=== PATIENT | male | born 1965 | race Caucasian/White ===

== ENCOUNTER → 2018-06-09 17:09 | Outpatient (CLI) | payer OTHER, SELFPAY ==
--- NOTE | 2018-06-09 17:11 | DI.RAD.S_ITS ---
PROCEDURE: XR CHEST 2V INDICATIONS: Cough. TECHNIQUE: 2 views of the chest were acquired. COMPARISON: [facility], , CHEST 2 VIEW, 07/01/2011, 17:05. FINDINGS: Surgical changes and devices: Cervical spinal fusion hardware noted. Lungs and pleura: No pleural effusions or pneumothorax. Lungs are clear. Mediastinum: Mediastinal contours are normal. Heart size is normal. Bones and chest wall: Mild degenerative changes of the bilateral acromioclavicular joints and thoracic spine noted. IMPRESSION: No acute cardiopulmonary disease. Dictated by: Humphrey Rios M.D. on 06/09/2018 at 17:23 Approved by: Humphrey Rios M.D. on 06/09/2018 at 17:27
== END ==
PROVIDERS: PCP Family Medicine; Visit Provider Physician Assistant
DX: R05 Cough (principal)
CPT/HCPCS: 71046

== ENCOUNTER → 2018-12-31 14:20 | Outpatient (CLI) | payer OTHER, SELFPAY ==
--- NOTE | 2018-12-31 14:21 | DI.CT.S_ITS ---
PROCEDURE: CT SINUS SCREEN WO CON INDICATIONS: possible mastoiditis, sinusitis TECHNIQUE: Noncontrast 3.0 mm axial images acquired from the frontal sinuses to the mid-sella, with coronal and sagittal reformats. For radiation dose reduction, the following was used: automated exposure control, adjustment of mA and/or kV according to patient size. COMPARISON: [facility], MR, BRAIN WITHOUT CONTRAST, 02/18/2017, 17:45. FINDINGS: Image quality: Excellent. Maxillary Sinuses: No bony remodeling or destruction. Sinuses are clear. Ethmoid Air Cells: No bony remodeling or destruction. Sinuses are clear. Sphenoid Sinuses: No bony remodeling or destruction. Sinuses are clear. Frontal Sinuses: No bony remodeling or destruction. Sinuses are clear. Ostiomeatal Complexes: Ostiomeatal complexes are patent, yet they are constitutionally narrowed with infraorbital air cells. Miscellaneous: Visualized intra-orbital contents are normal. No krystin bullosa or paradoxical turbinate curvature. There is mild leftward nasal septal deviation. IMPRESSION: No significant active paranasal sinus disease is seen. No abnormal fluid can be seen within the mastoid air cells. Mild leftward nasal septal deviation Patent ostiomeatal complexes, which are narrowed by infraorbital air cells. Dictated by: Osmin Israel M.D. on 12/31/2018 at 14:14 Approved by: Osmin Israel M.D. on 12/31/2018 at 14:15
== END ==
PROVIDERS: Family Provider Family Medicine; PCP Family Medicine; Visit Provider Family Medicine
DX: H70.90 Unspecified mastoiditis, unspecified ear (principal); J32.9 Chronic sinusitis, unspecified; J34.2 Deviated nasal septum; H92.09 Otalgia, unspecified ear
CPT/HCPCS: 70486

== ENCOUNTER → 2019-05-26 09:38 | Outpatient (CLI) | payer OTHER, SELFPAY ==
[2019-05-26 10:36] LABS: Add Manual Diff / Slide Review NO; Basophils Absolute Auto 100 /uL (0-100); Eosinophils Absolute Auto 100 /uL (0-450); Eosinophils Percent Auto 2.9 % (2-4); Hematocrit 46.1 % (41-53); Lymphocytes Absolute Auto 1700 /uL (1100-4500); Mean Corpuscular HGB Conc 34.7 % (30-36); Mean Corpuscular Hemoglobin 31.7 PG (26-34); Mean Corpuscular Volume 91.3 fL (80-100); Monocytes Absolute Auto 600 /uL (0-900); Monocytes Percent Auto 11.3 % (3-14); Neutrophils Absolute Auto 2500 /uL (1500-7000); Neutrophils Percent Auto 49.8 % (50-75); Platelet Count 268 X10^3/uL (150-400); Red Blood Cell Count 5.04 X10^6/uL (4.5-5.9); Red Cell Distribution Width 13.6 % (11.6-14.8)
[2019-05-26 10:48] LABS: Alanine Aminotransferase 49 IU/L (<50); Albumin 4.8 g/dL (3.5-5.0); Albumin Globulin Ratio 1.4 (1.0-2.8); Alkaline Phosphatase 62 U/L (38-126); Aspartate Aminotransferase 34 IU/L (17-59); Bilirubin Total 0.7 mg/dL (0.2-1.3); Blood Urea Nitrogen 24 mg/dL (9-20); Calcium 9.4 mg/dL (8.4-10.2); Carbon Dioxide 27 mmol/L (22-32); Chloride 100 mmol/L (98-107); Estimated Glomerular Filt Rate > 60.0 mL/min (>60); Globulin 3.5 g/dL (1.7-4.1); Glucose 105 mg/dL (70-100); HEMOLYSIS 24 (0-50); Lipase 48 U/L (23-300); Potassium 3.8 mmol/L (3.4-5.1); Sodium 138 mmol/L (137-145); Total Protein 8.3 g/dL (6.3-8.2)
== END ==
PROVIDERS: Family Provider Family Medicine; PCP Family Medicine; Visit Provider Physician Assistant
DX: R10.31 Right lower quadrant pain (principal)
CPT/HCPCS: 36415; 80053; 83690; 85025

== ENCOUNTER → 2019-05-27 13:26 | Outpatient (CLI) | payer OTHER, SELFPAY ==
--- NOTE | 2019-05-27 13:27 | DI.CT.S_ITS ---
PROCEDURE: CT ABDOMEN PELVIS W CON INDICATIONS: rlq pain TECHNIQUE: After the administration of intravenous contrast, 5 mm thick sections acquired from the diaphragm to the symphysis. 5 mm coronal and sagittal reformats were acquired. For radiation dose reduction, the following was used: automated exposure control, adjustment of mA and/or kV according to patient size. COMPARISON: None. FINDINGS: Image quality: Excellent. ABDOMEN: Lung bases: Lung bases are clear. Heart size is normal. Solid organs: Liver is normal in size and enhancement. Diffuse hepatic steatosis. Gallbladder is unremarkable. Biliary system is non dilated. Pancreas enhances normally. Spleen is normal in size and enhancement. No adrenal nodules. Kidneys demonstrate normal size and enhancement, without hydronephrosis. Peritoneum and bowel: Bowel loops demonstrate normal wall thickness and caliber. No free fluid or air. Normal appendix. Nodes and vessels: No retroperitoneal or mesenteric adenopathy by size criteria. Aorta and inferior vena cava are normal in size. Miscellaneous: Small umbilical hernia containing fat. PELVIS: Genitourinary: Bladder wall thickness is normal. Miscellaneous: bilateral fat containing inguinal hernias. No inguinal adenopathy. Bones: No suspicious bony lesions. No vertebral body compression fractures. IMPRESSION: 1. Normal appendix. No evidence of right renal stone or ureteral stone. 2. Bilateral inguinal hernias containing fat. 3. Small ventral hernia containing fat. 4. Hepatic steatosis. Dictated by: Christofer Salgado M.D. on 05/27/2019 at 14:28 Approved by: Christofer Salgado M.D. on 05/27/2019 at 14:34
== END ==
PROVIDERS: Family Provider Family Medicine; PCP Family Medicine; Visit Provider Physician Assistant
DX: R10.31 Right lower quadrant pain (principal); K40.20 Bilateral inguinal hernia, without obstruction or gangrene, not specified as recurrent; K43.9 Ventral hernia without obstruction or gangrene; K76.0 Fatty (change of) liver, not elsewhere classified
CPT/HCPCS: 74177; Q9967

== ENCOUNTER 2020-02-11 18:11 | Emergency (ER) | payer OTHER, SELFPAY ==
[2020-02-11 18:15] VITALS: BP 101/58; PULSE 52; RESP 14; TEMP 36.6; O2SAT 97; BMI 27.2
--- NOTE | 2020-02-11 18:50 | DI.RAD.S_ITS ---
PROCEDURE: XR FINGER LT MIN 2V INDICATIONS: injury to 2nd digit TECHNIQUE: AP hand, 2 views of the 3 finger(s) acquired. COMPARISON: None. FINDINGS: Bones: Tiny avulsion fracture fragment is present at the dorsal and proximal aspect of the 2nd middle phalanx indicative of an extensor tendon avulsion fracture. No other fractures or dislocations. No suspicious bony lesions. Soft tissues: No suspicious soft tissue calcifications. IMPRESSION: Extensor tendon avulsion fracture of the 2nd middle phalanx. Dictated by: Kemar Carrington M.D. on 02/11/2020 at 19:52 Approved by: Kemar Carrington M.D. on 02/11/2020 at 19:54
[2020-02-11] MEDS: TET,DIPH,PERTUSS(ACELL),VAC/PF 0.5 ML SYRINGE IM (18:59)
--- NOTE | 2020-02-11 20:10 | ED_ITS ---
HPI - Wound/Laceration <JERRICA Perkins-BC - Last Filed: 02/11/20 22:05> General Chief Complaint: Wound/Laceration Stated Complaint: cut finger left hand index finger Time Seen by Provider: 02/11/20 18:50 Source: patient Mode of arrival: Wheelchair Limitations: no limitations History of Present Illness HPI narrative: 54-year-old male with history of vertigo with a chief complaint of a laceration to his left index finger. He is left-hand dominant and was working with an angle greater when his finger got caught. He states that there is a deep laceration on his left index finger, he believes that his town to the bone. States he has full range of motion but it is painful. Has not taken anything for pain. Does not know when his last tetanus was. States he can flex and extend his finger, is painful to do so. Last oral intake was dinner at 4:00 p.m.. Related Data Previous Rx's Medication Instructions Recorded fluoxetine 20 mg capsule 20 mg PO QDAY #90 cap 07/21/18 cephalexin 500 mg PO TID 7 Days #21 cap 02/11/20 hydrocodone-acetaminophen [[place]] 1 tab PO Q4-6H PRN #10 tab 02/11/20 ondansetron 4 mg PO Q6H PRN #20 tab 02/11/20 Allergies Allergy/AdvReac Type Severity Reaction Status Date / Time No Known Drug Allergies Allergy Verified 02/11/20 18:19 Review of Systems <IGLESIA Perkins - Last Filed: 02/11/20 22:05> Review of Systems Narrative: GENERAL: Denies chills, fatigue, malaise, fever, sweats. HEENT: Denies sinus pain, ear pain, sore throat, difficulty swallowing, dizziness. RESPIRATORY: Denies dyspnea, cough, wheezing, hemoptysis, sputum. CARDIOVASCULAR: Denies chest pain, palpitations, orthopnea, edema, GASTROINTESTINAL: Denies nausea, vomiting, abdominal pain, diarrhea, constipation, melena. : Denies dysuria, frequency, incontinence, hematuria, urinary retention. MUSCULOSKELETAL: See HPI SKIN: See HPI NEUROLOGIC: Denies weakness, headache, numbness, change in speech, confusion, seizures, incoordination. PSYCHIATRIC: No concerning psychosocial issues. 12 point review of systems is negative except for those stated above Patient History <Rosalba Looney JERRICA-BC - Last Filed: 02/11/20 22:05> Surgical History (Updated 06/03/19 @ 15:23 by Sandra Adam, SEBASTIEN) History of vasectomy Hx of neck surgery (Acute) Hx of tonsillectomy (Acute) Family History Father Diabetes mellitus Heart disease High cholesterol Stroke Grandfather Cancer Grandfather Heart disease Grandmother Diabetes mellitus Social History (Updated 06/03/19 @ 15:24 by Sandra Adam, SEBASTIEN) marital status: household members: spouse and children occupational status: employed Smoking Status: Never smoker alcohol intake: current substance use type: does not use Smoking Status: Never smoker alcohol intake frequency: holidays/special occasions only Substance Use Type: does not use Exam <Rosalba Looney JERRICA-BC - Last Filed: 02/11/20 22:05> Narrative Exam Narrative: GENERAL: This is a well-nourished, well-developed patient, appears anxious HEAD: Atraumatic. Normocephalic. No temporal or scalp tenderness. EYES: Pupils equal round and reactive. Extraocular motions intact. No scleral icterus. No injection or drainage. ENT: Nose without bleeding, purulent drainage or septal hematoma. Throat without erythema, tonsillar hypertrophy or exudate. Uvula midline. Airway patent. NECK: Trachea midline. No JVD or lymphadenopathy. Supple, nontender, no meningeal signs. CARDIOVASCULAR: Regular rate and rhythm RESPIRATORY: No cough. No increased respiratory effort. No accessory muscle use. EXTREMITIES: Left index finger with jagged irregular 5 cm laceration on dorsum with missing tissue noted over proximal interphalangeal joint, oozing blood, contamination noted, edges not approximated, joint capsule visible no obvious intrusion to joint capsule. Patient able to flex and extend finger against resistance. BACK: Nontender without deformity or crepitance. No flank tenderness. NEURO: AOx3. SKIN: See extremity exam Initial Vital Signs Initial Vital Signs: Vital Signs Temperature 97.9 F 02/11/20 18:15 Pulse Rate 52 L 02/11/20 18:15 Respiratory Rate 14 02/11/20 18:15 Blood Pressure 101/58 L 02/11/20 18:15 Pulse Oximetry 97 02/11/20 18:15 <Desmond Melendez MD - Last Filed: 02/12/20 02:02> Initial Vital Signs Initial Vital Signs: Vital Signs Temperature 97.9 F 02/11/20 18:15 Pulse Rate 52 L 02/11/20 18:15 Respiratory Rate 14 02/11/20 18:15 Blood Pressure 101/58 L 02/11/20 18:15 Pulse Oximetry 97 02/11/20 18:15 Procedures <MICHELLE Perkins - Last Filed: 02/11/20 22:05> Laceration Repair Laceration 1: Site: hand Side (If applicable): left Size (cm): 5 Description: irregular and contaminated Pre-repair: wound explored and irrigated extensively (Cleansed with sterile saline flush, trazodone iodine, Hibiclens.) Skin layer closed with: nylon Size (cm): 4-0 Number of sutures: 6 Technique: simple, interrupted Nerve Block Nerve Block 1: Local Anesthetic: lidocaine 1% and bupivacaine 0.5% Amount of anesthesia used (mL): 6 Side: left Nerve Blocks: digital (Left index finger) Procedure Successful: Yes Patient Tolerated Procedure: Well Complications: none Scores <MICHELLE Perkins - Last Filed: 02/11/20 22:05> GCS [place] coma scale eye opening: Spontaneous [place] coma scale verbal response: Orientated [place] coma scale motor response: Obey commands [place] coma scale total score: 15 Course <MICHELLE Perkins - Last Filed: 02/11/20 22:05> Orders Ordered: ED Orders 02/11/20 18:50 XR finger LT min 2V Stat Discontinued Medications Hydrocodone Bitart/Acetaminophen (Vicodin 5/325 Prepack) 1 bottle MISC SEEINSTR ONE Stop: 02/11/20 21:48 Last Admin: 02/11/20 21:56 Dose: 1 bottle Documented by: CHERRIE Hydrocodone Bitart/Acetaminophen ([place] 5/325) 1 tab PO NOW ONE Stop: 02/11/20 21:48 Last Admin: 02/11/20 21:56 Dose: 1 tab Documented by: CHERRIE Bacitracin (Bacitracin) 1 applic TOP NOW ONE Stop: 02/11/20 21:29 Last Admin: 02/11/20 21:41 Dose: 1 applic Documented by: CHERRIE Cefazolin Sodium (Ancef Vial) 2 gm IV NOW ONE Stop: 02/11/20 20:51 Last Admin: 02/11/20 21:15 Dose: 2 gm Documented by: CHERRIE Diphtheria/Tetanus/Acell Pertussis (Adacel) 0.5 ml IM .ONCE ONE Stop: 02/11/20 18:52 Last Admin: 02/11/20 18:59 Dose: 0.5 ml Documented by: CHERRIE Lidocaine/Sodium Bicarbonate (Buffered Lidocaine 10 Ml Syr) 10 ml INJ NOW ONE Stop: 02/11/20 20:51 Last Admin: 02/11/20 21:18 Dose: 10 ml Documented by: CHERRIE Ondansetron HCl (Zofran Odt Prepack) 1 bottle MISC SEEINSTR ONE Stop: 02/11/20 21:48 Last Admin: 02/11/20 21:56 Dose: 1 bottle Documented by: CHERRIE Vital Signs Vital signs: Vital Signs - 8 hr 02/11/20 18:15 02/11/20 22:05 Temperature 97.9 F Pulse Rate 52 L 74 Respiratory Rate 14 18 Blood Pressure 101/58 L 136/72 Pulse Oximetry 97 96 <Desmond Melendez MD - Last Filed: 02/12/20 02:02> Orders Ordered: ED Orders 02/11/20 18:50 XR finger LT min 2V Stat Discontinued Medications Hydrocodone Bitart/Acetaminophen (Vicodin 5/325 Prepack) 1 bottle MISC SEEINSTR ONE Stop: 02/11/20 21:48 Last Admin: 02/11/20 21:56 Dose: 1 bottle Documented by: CHERRIE Hydrocodone Bitart/Acetaminophen ([place] 5/325) 1 tab PO NOW ONE Stop: 02/11/20 21:48 Last Admin: 02/11/20 21:56 Dose: 1 tab Documented by: CHERRIE Bacitracin (Bacitracin) 1 applic TOP NOW ONE Stop: 02/11/20 21:29 Last Admin: 02/11/20 21:41 Dose: 1 applic Documented by: CHERRIE Cefazolin Sodium (Ancef Vial) 2 gm IV NOW ONE Stop: 02/11/20 20:51 Last Admin: 02/11/20 21:15 Dose: 2 gm Documented by: CHERRIE Diphtheria/Tetanus/Acell Pertussis (Adacel) 0.5 ml IM .ONCE ONE Stop: 02/11/20 18:52 Last Admin: 02/11/20 18:59 Dose: 0.5 ml Documented by: CHERRIE Lidocaine/Sodium Bicarbonate (Buffered Lidocaine 10 Ml Syr) 10 ml INJ NOW ONE Stop: 02/11/20 20:51 Last Admin: 02/11/20 21:18 Dose: 10 ml Documented by: CHERRIE Ondansetron HCl (Zofran Odt Prepack) 1 bottle MISC SEEINSTR ONE Stop: 02/11/20 21:48 Last Admin: 02/11/20 21:56 Dose: 1 bottle Documented by: CHERRIE Vital Signs Vital signs: Vital Signs - 8 hr 02/11/20 18:15 02/11/20 22:05 Temperature 97.9 F Pulse Rate 52 L 74 Respiratory Rate 14 18 Blood Pressure 101/58 L 136/72 Pulse Oximetry 97 96 MDM - Wound/Laceration <MICHELLE Perkins - Last Filed: 02/11/20 22:05> Differential Diagnosis Differential diagnosis: Likely laceration Imaging Data Extremity x-ray #1: Radiologist's Impression: [address] [place] [id number] XRay Report Signed Patient: Sammy Marmolejo [facility]#: [id number] : 1965Acct:[id number] Age/Sex: 54 / MDate of Service: 02/11/20 Loc: ED Accession Number: [id number] Procedure: XR finger LT min 2V Ordering Provider: Rosalba Looney PROCEDURE: XR FINGER LT MIN 2V INDICATIONS: injury to 2nd digit TECHNIQUE: AP hand, 2 views of the 3 finger(s) acquired. COMPARISON: None. FINDINGS: Bones: Tiny avulsion fracture fragment is present at the dorsal and proximal aspect of the 2nd middle phalanx indicative of an extensor tendon avulsion fracture. No other fractures or dislocations. No suspicious bony lesions. Soft tissues: No suspicious soft tissue calcifications. IMPRESSION: Extensor tendon avulsion fracture of the 2nd middle phalanx. Dictated by: Kemar Carrington M.D. on 02/11/2020 at 19:52 Approved by: Kemar Carrington M.D. on 02/11/2020 at 19:54 [facility] Narrative Medical decision making narrative: The patient is a 54-year-old male who presents with a chief complaint of a finger injury after getting caught in an angle plate grinder without gloves. He has an avulsion fracture on x-ray, given complexity of laceration, inability to approximate edges, avulsion laceration attendant site, I spoke with Dr. Sahni from [facility], who states that I can suture loosely as best as possible and have him follow-up in the clinic. Discussed placing well Keflex, discussed that I will not be able to approximate edges. Discussed at length keeping wound clean and dry, monitoring for signs and symptoms of infection the importance of follow-up with orthopedics. Patient was given 2 g Ancef in the emergency department, placed on Keflex and discussed at length taking it with probiotic or yogurt. Encouraged rest ice compression elevation as well as [id number] pain medications as needed and able. Prescription of [place] and Zofran given. Patient's tetanus is updated. Patient have no questions or concerns upon discharge and state understanding return precautions as well as follow-up care. Discharge Plan Departure Patient Disposition: Home Clinical Impression: Laceration, Avulsion fracture, Open fracture Discharge Date/Time: 02/11/20 22:16 Instructions: DI for Laceration Repair, DI for Finger Fracture, How To Perform RICE (Rest, Ice, Compress, Elevate), DI for Open Fracture Activity Restrictions/Additional Instructions: Thank you for trusting us with your care today. I am sorry that you are injured and wish you a speedy recovery. As discussed, you have a significant laceration to her finger, including a small open avulsion fracture. I sent 3 prescriptions to [facility]. This includes [place] for pain, ondansetron for nausea and an antibiotic. Please take the antibiotic with probiotic or yogurt. As discussed, please check your incision for signs and symptoms of infection including extending redness, purulent drainage daily. You can change the dressing once a day and use [id number] antibiotic ointment. Please keep your laceration clean and dry. Do not submerge into dirty water. I have included contact information for [facility] and Dr. Sahni, who I spoke with this evening. Sutures generally come out in about a week. However please follow-up with orthopedics before arranging anything. I also suggest following up with primary care provider. Please call [facility] on Thursday to help arrange follow-up. Please come back to the emergency department for any acute concerns such as d ecreased circulation to your finger etcetera Prescriptions: New cephalexin 500 mg capsule 500 mg PO TID 7 Days Qty: 21 RF: 0 hydrocodone-acetaminophen [[place]] 5-325 mg tablet 1 tab PO Q4-6H PRN (Reason: pain) Qty: 10 RF: 0 ondansetron 4 mg tablet,disintegrating 4 mg PO Q6H PRN (Reason: nausea and vomiting) Qty: 20 RF: 0 No Action fluoxetine 20 mg capsule 20 mg PO QDAY Qty: 90 RF: 3 Referrals: Kemar Palomino MD [Primary Care Provider] - <Desmond Melendez MD - Last Filed: 02/12/20 02:02> [facility] I was immediately available in the department for consultation. This documentation has been reviewed and I agree with assessment and plan. Supervised by Desmond Melendez MD
[2020-02-11] MEDS: CEFAZOLIN 1 GM VIAL 2 GM IV (21:15)
[2020-02-11] MEDS: LIDO 1%/SOD BICARB 8.4% (10ML) 10 ML SYRINGE INJ (21:18)
[2020-02-11] MEDS: BACITRACIN OINT 0.9 GM PCKT 1 APPLIC TOP (21:41)
[2020-02-11] MEDS: HYDROCODONE/ACET 5/325 TABLET 1 TAB PO (21:56)
[2020-02-11] MEDS: ONDANSETRON 4 MG ODT PREPACK 1 BOTTLE MISC (21:56)
[2020-02-11] MEDS: HYDROCODONE/ACET 5/325 PREPACK 1 BOTTLE MISC (21:56)
[2020-02-11 22:05] VITALS: BP 136/72; PULSE 74; RESP 18; O2SAT 96
== END 2020-02-11 22:16 | disposition home or self-care (01) ==
PROVIDERS: Emergency Provider Nurse Practitioner Family; Family Provider Family Medicine; PCP Family Medicine
DX: S62.601B Fracture of unspecified phalanx of left index finger, initial encounter for open fracture (principal); Z23 Encounter for immunization
CPT/HCPCS: 73140; 90471; 96374; 99284; 90715; J0690

== ENCOUNTER → 2020-11-28 14:20 | Outpatient (CLI) | payer OTHER, SELFPAY ==
--- NOTE | 2020-11-28 14:21 | DI.RAD.S_ITS ---
PROCEDURE: XR ELBOW LT MIN 3V INDICATIONS: left elbow pain TECHNIQUE: 3 views of the elbow were acquired. COMPARISON: None. FINDINGS: Bones: No fractures or dislocations. No suspicious bony lesions. Soft tissues: No elbow joint effusion. No suspicious soft tissue calcifications. IMPRESSION: No acute osseous abnormality. Dictated by: Vladimir Berrios M.D. on 11/28/2020 at 14:41 Approved by: Vladimir Berrios M.D. on 11/28/2020 at 14:42
== END ==
PROVIDERS: Family Provider Family Medicine; PCP Family Medicine; Referring Provider Physician Assistant; Visit Provider Physician Assistant
DX: M25.522 Pain in left elbow (principal)
CPT/HCPCS: 73080

== ENCOUNTER → 2021-10-17 12:08 | Outpatient (CLI) | payer OTHER, SELFPAY ==
[2021-10-17 14:24] LABS: Add Manual Diff / Slide Review NO; Basophils Absolute Auto 0 /uL (0-100); Basophils Percent Auto 0.4 % (0-2); Eosinophils Absolute Auto 0 /uL (0-450); Eosinophils Percent Auto 0.5 % (2-4); Hematocrit 41.6 % (41-53); Hemoglobin 14.6 g/dL (13.5-17.5); Lymphocytes Absolute Auto 1900 /uL (1100-4500); Lymphocytes Percent Auto 30.4 % (25-40); Mean Corpuscular Hemoglobin 31.5 PG (26-34); Mean Corpuscular Volume 90.1 fL (80-100); Monocytes Absolute Auto 500 /uL (0-900); Monocytes Percent Auto 8.7 % (3-14); Neutrophils Absolute Auto 3700 /uL (1500-7000); Platelet Count 270 X10^3/uL (150-400); Red Blood Cell Count 4.62 X10^6/uL (4.5-5.9); Red Cell Distribution Width 13.8 % (11.6-14.8); White Blood Cell Count 6.1 X10^3/uL (4.5-11.0)
[2021-10-17 14:30] LABS: Hemoglobin A1C% w Est Avg Glu 6.2 % (4.0-6.0)
[2021-10-17 14:52] LABS: Alanine Aminotransferase 28 IU/L (<50); Albumin 4.6 g/dL (3.5-5.0); Albumin Globulin Ratio 1.4 (1.0-2.8); Alkaline Phosphatase 69 U/L (38-126); Aspartate Aminotransferase 26 IU/L (17-59); BUN Creatinine Ratio 23.9 (6-22); Bilirubin Total 0.5 mg/dL (0.2-1.3); Blood Urea Nitrogen 22 mg/dL (9-20); Calcium 9.5 mg/dL (8.4-10.2); Carbon Dioxide 28 mmol/L (22-32); Chloride 102 mmol/L (98-107); Cholesterol 235 mg/dL (140-199); Estimated Glomerular Filt Rate > 60 mL/min (>60); Globulin 3.2 g/dL (1.7-4.1); Glucose 96 mg/dL (70-100); HDL Cholesterol 29 mg/dL (40-60); HEMOLYSIS < 15 (0-50); LDL Cholesterol Calculated 127 mg/dL (<100); Potassium 4.3 mmol/L (3.4-5.1); Sodium 140 mmol/L (137-145); Total Protein 7.8 g/dL (6.3-8.2); Triglycerides 396 mg/dL (35-150)
[2021-10-17 15:20] LABS: TSH w/ Reflex to FT4 2.02 uIU/mL (0.47-4.68)
== END ==
PROVIDERS: Family Provider Family Medicine; PCP Family Medicine; Referring Provider Family Medicine; Visit Provider Family Medicine
DX: E78.5 Hyperlipidemia, unspecified (principal); R73.03 Prediabetes
CPT/HCPCS: 36415; 80053; 80061; 83036; 84443; 85025

== ENCOUNTER → 2023-04-06 06:47 | Outpatient (CLI) | payer OTHER, SELFPAY ==
[2023-04-06 08:27] LABS: HEMOLYSIS < 15 (0-50); Iron 91 ug/dL (49-181)
[2023-04-06 08:29] LABS: C-Reactive Protein Quant 0.5 mg/dL (<1.0)
[2023-04-06 08:37] LABS: Percent Iron Saturation 25 % (20-50); Total Iron Binding Capacity 364 ug/dL (261-462); Transferrin 302 mg/dL (206-381)
[2023-04-06 08:53] LABS: Ferritin 42 ng/mL (18-464)
== END ==
PROVIDERS: Family Provider Family Medicine; PCP Family Medicine; Referring Provider Pediatrics; Visit Provider Pediatrics
DX: G25.81 Restless legs syndrome (principal); D50.9 Iron deficiency anemia, unspecified
CPT/HCPCS: 36415; 82728; 83540; 83550; 86140

== ENCOUNTER → 2023-09-23 06:41 | Outpatient (CLI) | payer OTHER, SELFPAY ==
[2023-09-23 07:42] LABS: Add Manual Diff / Slide Review NO; Basophils Absolute Auto 0 /uL (0-100); Basophils Percent Auto 0.9 % (0-2); Eosinophils Absolute Auto 100 /uL (0-450); Eosinophils Percent Auto 1.9 % (2-4); Hematocrit 42.5 % (41-53); Hemoglobin 14.7 g/dL (13.5-17.5); Lymphocytes Absolute Auto 1300 /uL (1100-4500); Lymphocytes Percent Auto 26.5 % (25-40); Mean Corpuscular HGB Conc 34.7 % (30-36); Mean Corpuscular Hemoglobin 31.1 PG (26-34); Mean Corpuscular Volume 89.6 fL (80-100); Monocytes Absolute Auto 600 /uL (0-900); Monocytes Percent Auto 11.9 % (3-14); Neutrophils Absolute Auto 3000 /uL (1500-7000); Neutrophils Percent Auto 58.8 % (50-75); Platelet Count 241 X10^3/uL (150-400); Red Blood Cell Count 4.74 X10^6/uL (4.5-5.9); Red Cell Distribution Width 13.5 % (11.6-14.8); White Blood Cell Count 5.1 X10^3/uL (4.5-11.0)
[2023-09-23 08:03] LABS: Alanine Aminotransferase 36 IU/L (<50); Albumin 4.7 g/dL (3.5-5.0); Albumin Globulin Ratio 1.7 (1.0-2.8); Alkaline Phosphatase 73 U/L (38-126); Aspartate Aminotransferase 29 IU/L (17-59); BUN Creatinine Ratio 24.4 (6-22); Bilirubin Total 0.7 mg/dL (0.2-1.3); Blood Urea Nitrogen 20 mg/dL (9-20); Calcium 9.5 mg/dL (8.4-10.2); Carbon Dioxide 29 mmol/L (22-32); Chloride 106 mmol/L (98-107); Cholesterol 219 mg/dL (140-199); Estimated Glomerular Filt Rate > 60 mL/min (>60); Globulin 2.8 g/dL (1.7-4.1); Glucose 117 mg/dL (70-100); HDL Cholesterol 27 mg/dL (40-60); HEMOLYSIS < 15 (0-50); LDL Cholesterol Calculated 147 mg/dL (<100); Potassium 4.1 mmol/L (3.4-5.1); Sodium 139 mmol/L (137-145); Total Protein 7.5 g/dL (6.3-8.2); Triglycerides 225 mg/dL (35-150)
[2023-09-23 08:27] LABS: Prostate Specific Antigen Scrn 0.531 ng/mL (0.1-4.0)
[2023-09-23 08:30] LABS: TSH w/ Reflex to FT4 2.37 uIU/mL (0.47-4.68)
== END ==
PROVIDERS: Family Provider Family Medicine; PCP Family Medicine; Referring Provider Family Medicine; Visit Provider Family Medicine
DX: E78.00 Pure hypercholesterolemia, unspecified (principal); R73.03 Prediabetes; Z12.5 Encounter for screening for malignant neoplasm of prostate
CPT/HCPCS: 36415; 80053; 80061; 84443; 85025; G0103

== ENCOUNTER → 2023-12-28 06:44 | Outpatient (CLI) | payer OTHER, SELFPAY ==
[2023-12-28 09:08] LABS: BUN Creatinine Ratio 21.2 (6-22); Blood Urea Nitrogen 22 mg/dL (9-20); Calcium 9.8 mg/dL (8.4-10.2); Carbon Dioxide 31 mmol/L (22-32); Chloride 104 mmol/L (98-107); Estimated Glomerular Filt Rate > 60 mL/min (>60); Glucose 111 mg/dL (70-100); HEMOLYSIS < 15 (0-50); Potassium 5.2 mmol/L (3.4-5.1); Sodium 141 mmol/L (137-145)
== END ==
PROVIDERS: Family Provider Family Medicine; PCP Family Medicine; Referring Provider Family Medicine; Visit Provider Family Medicine
DX: E78.5 Hyperlipidemia, unspecified (principal); E11.8 Type 2 diabetes mellitus with unspecified complications; R73.03 Prediabetes
CPT/HCPCS: 36415; 80048; 83036

== ENCOUNTER → 2024-03-03 08:31 | Outpatient (CLI) | payer OTHER, SELFPAY ==
[2024-03-03 15:14] LABS: Creatinine Urine Random 129.95 mg/dL
[2024-03-03 15:18] LABS: Microalbumin Urine Random 0.8 mg/dL (0-1.6)
== END ==
PROVIDERS: Family Provider Family Medicine; PCP Family Medicine; Visit Provider Family Medicine
DX: E11.8 Type 2 diabetes mellitus with unspecified complications (principal)
CPT/HCPCS: 82043; 82570

== ENCOUNTER → 2024-06-22 16:58 | Outpatient (CLI) | payer OTHER, SELFPAY ==
[2024-06-22 18:02] LABS: Hemoglobin A1C% w Est Avg Glu 5.8 % (4.0-6.0)
== END ==
PROVIDERS: Family Provider Family Medicine; PCP Family Medicine; Referring Provider Family Medicine; Visit Provider Family Medicine
DX: E66.9 Obesity, unspecified (principal); E11.8 Type 2 diabetes mellitus with unspecified complications; E78.5 Hyperlipidemia, unspecified; K42.9 Umbilical hernia without obstruction or gangrene
CPT/HCPCS: 36415; 83036

== ENCOUNTER → 2024-06-27 16:59 | Outpatient (CLI) | payer OTHER, SELFPAY ==
--- NOTE | 2024-06-27 17:01 | DI.RAD.S_ITS ---
PROCEDURE: XR CHEST 2V INDICATIONS: cough TECHNIQUE: 2 views of the chest were acquired. COMPARISON: None. FINDINGS: Heart, mediastinum and pulmonary vascular: Heart is normal in size and configuration. Mediastinum is unremarkable. Pulmonary vascular is normal. Lungs: Clear Pleural spaces: Normal-no effusions or pneumothorax. Bones and soft tissues: Normal IMPRESSION: Normal chest. Dictated by: Andres Purvis M.D. on 06/28/2024 at 9:33 Approved by: Andres Purvis M.D. on 06/28/2024 at 9:33
== END ==
LOC: RAD 17:00
PROVIDERS: Family Provider Family Medicine; PCP Family Medicine; Referring Provider Family Medicine; Visit Provider Family Medicine
DX: R05.3 Chronic cough (principal)
CPT/HCPCS: 71046

== ENCOUNTER → 2024-12-08 06:43 | Outpatient (CLI) | payer OTHER, SELFPAY ==
[2024-12-08 07:44] LABS: Add Manual Diff / Slide Review NO; Hematocrit 43.4 % (41-53); Hemoglobin 14.9 g/dL (13.5-17.5); Hemoglobin A1C% w Est Avg Glu 5.7 % (4.0-6.0); Lymphocytes Absolute Auto 1400 /uL (1100-4500); Mean Corpuscular HGB Conc 34.3 % (30-36); Mean Corpuscular Hemoglobin 31.2 PG (26-34); Mean Corpuscular Volume 91.0 fL (80-100); Platelet Count 227 X10^3/uL (150-400)
[2024-12-08 08:04] LABS: Alanine Aminotransferase 48 IU/L (<50); Albumin 4.6 g/dL (3.5-5.0); Albumin Globulin Ratio 1.5 (1.0-2.8); Alkaline Phosphatase 77 U/L (38-126); Blood Urea Nitrogen 22 mg/dL (9-20); Calcium 9.5 mg/dL (8.4-10.2); Carbon Dioxide 27 mmol/L (22-32); Chloride 102 mmol/L (98-107); Cholesterol 163 mg/dL (140-199); Estimated Glomerular Filt Rate > 60 mL/min (>60); Globulin 3.0 g/dL (1.7-4.1); Glucose 119 mg/dL (70-99); HDL Cholesterol 25 mg/dL (40-60); HEMOLYSIS < 15 (0-50); Potassium 4.3 mmol/L (3.4-5.1); Sodium 138 mmol/L (137-145); Total Protein 7.6 g/dL (6.3-8.2); Triglycerides 235 mg/dL (35-150)
[2024-12-08 08:16] LABS: Microalbumi Creatinin Ratio Ur 30.0 ug/mg CR (<30)
[2024-12-08 08:29] LABS: TSH w/ Reflex to FT4 1.41 uIU/mL (0.47-4.68)
== END ==
PROVIDERS: Family Provider Family Medicine; PCP Family Medicine; Referring Provider Family Medicine; Visit Provider Family Medicine
DX: Z12.5 Encounter for screening for malignant neoplasm of prostate (principal); E78.5 Hyperlipidemia, unspecified; E11.8 Type 2 diabetes mellitus with unspecified complications; R05.3 Chronic cough; F41.1 Generalized anxiety disorder; E66.9 Obesity, unspecified; Z80.42 Family history of malignant neoplasm of prostate
CPT/HCPCS: 36415; 80053; 80061; 82043; 82570; 83036; 84402; 84403; 84443; 85025; G0103